=== PATIENT | female | born 1975 | race Caucasian/White ===

== ENCOUNTER 2019-11-25 10:59 | Outpatient (CLI) | payer OTHER, SELFPAY ==
[2019-11-25 12:06] LABS: Alanine Aminotransferase 14 U/L (4-35); Albumin Level 4.5 g/dL (3.5-5.1); Alkaline Phosphatase 70 U/L (38-126); Anion Gap 7 mmol/L (8-16); Aspartate Amino Transferase 22 U/L (14-36); Bilirubin,Total 0.6 mg/dL (0.2-1.3); Blood Urea Nitrogen 13 mg/dL (7-17); Calcium 9.7 mg/dL (8.4-10.2); Carbon Dioxide 25 mmol/L (22-30); Chloride 106 mmol/L (98-107); Estimated Glomerular Filt Rate > 60; Glucose 103 mg/dL (65-105); Potassium 3.9 mmol/L (3.4-5.0); Sodium 138 mmol/L (137-145)
[2019-11-25 12:10] LABS: Hemoglobin A1C 5.6 % (<5.7)
[2019-11-25 12:56] LABS: Free T4 Free Thyroxine 1.11 ng/mL (0.78-2.19)
== END 2019-11-25 11:00 | disposition home or self-care (01) ==
PROVIDERS: Visit Provider Nurse Practitioner
DX: I10 Essential (primary) hypertension (principal); E03.9 Hypothyroidism, unspecified
CPT/HCPCS: 36415; 80053; 83036; 84439; 84443

== ENCOUNTER 2020-11-22 13:37 | Emergency (ER) | payer OTHER, SELFPAY ==
--- NOTE | ~2020-11-22 | XR_ITS ---
EXAMINATION: XR knee LT min 4V DATE: 11/22/2020 14:39 INDICATION: Left knee injury and pain. TECHNIQUE: 4 views of left knee were obtained. COMPARISON: None. FINDINGS: Bone alignment is normal. No fracture. There are changes of anterior cruciate ligament cielo nstruction. There is moderate osteoarthritis of medial and lateral compartments and mild osteoarthrit is of patellofemoral compartment. No knee joint effusion. IMPRESSION: 1. Moderate left knee osteoarthritis. Reviewed, dictated and finalized at location A.
[2020-11-22 14:06] VITALS: BP 151/86; PULSE 120; RESP 16; TEMP 36.1; O2SAT 99
--- NOTE | 2020-11-22 14:12 | ED.LOWEXIN ---
HPI - Extremity Injury (Lower) General Chief Complaint: Extremity Injury, Lower Stated Complaint: L Knee Pain Time Seen by Provider: 11/22/20 14:11 Source: patient Mode of arrival: wheelchair Limitations: no limitations History of Present Illness HPI Narrative: Patient is a 45-year-old female who presents for evaluation of injury to left knee. Patient was walking when she had a misstep and heard 3 pops in her left knee with immediate pain in the knee. Patient reports some pain and swelling at the site. Pain is exacerbated with movement and bearing weight. She has been able to ambulate. No focal numbness or weakness. Patient has history of various knee surgeries in this knee. She did not fall to the ground. No pain in the right knee. No hip pain. Related Data Home Medications Medication Instructions Recorded Confirmed atorvastatin HS 11/22/20 buspirone mg BID 11/22/20 clonidine HCl HS 11/22/20 levothyroxine DAILY 11/22/20 lisinopril DAILY 11/22/20 lorazepam HS PRN 11/22/20 metformin mg BID 11/22/20 venlafaxine mg 11/22/20 venlafaxine mg 11/22/20 Allergies Allergy/AdvReac Type Severity Reaction Status Date / Time lanolin Allergy Mild RASH Verified 11/22/20 14:18 meperidine Allergy Mild RASH/VOMITI Verified 11/22/20 14:18 NG propoxyphene Allergy Mild RASH/VOMITI Verified 11/22/20 14:18 NG cortisone Allergy Unknown SWELLING Verified 11/22/20 14:18 Review of Systems Review of Systems: CONSTITUTIONAL: Denies fever CARDIOVASCULAR: Denies chest pain RESPIRATORY: Denies cough or dyspnea. GASTROINTESTINAL: Denies abdominal pain SKIN: Denies rash MUSCULOSKELETAL: Denies back pain, reports left knee pain NEUROLOGIC: Denies headache [facility] Family History Family History (Updated 10/13/15 @ 23:19 by DOCTOR UNKNOWN) Grandparent Family history of malignant neoplasm of breast Family history of coronary artery disease Diabetes mellitus Other Family history of kidney disease Family history of malignant neoplasm Social History Social History Smoking status: Never smoker Second hand tobacco smoke exposure: No Alcohol intake: current Exam Narrative: GENERAL: Awake, alert, conversant HEAD: Normocephalic, atraumatic. EYES: PERRLA and EOMI. ENT: Nares clear, no rhinorrhea or epistaxis. Mucous membranes moist. NECK: Supple. CHEST: No respiratory distress, breathing even and non labored HEART: Regular rate, sinus rhythm ABDOMEN:Non distended, non tender EXTREMITIES: The left knee has an intact surgical scar that is well-healed. There is mild effusion. No erythema or warmth. Patella is midline. There is mild tenderness at the medial and lateral joint space. No deformity. Intact sensation. DP pulse 2+. Capillary refill less than 3 seconds. SKIN: Warm, dry, no rash. NEURO:No focal deficits. Alert and oriented x3 Course Vital Signs Vital signs: Vital Signs Temperature 36.1 C L 11/22/20 14:06 Pulse Rate 120 H 11/22/20 14:06 Respiratory Rate 16 11/22/20 14:06 Blood Pressure 151/86 H 11/22/20 14:06 Pulse Oximetry 99 11/22/20 14:06 Temperature 36.1 C L 11/22/20 14:06 Pulse Rate 120 H 11/22/20 14:06 Respiratory Rate 16 11/22/20 14:06 Blood Pressure 151/86 H 11/22/20 14:06 Pulse Oximetry 99 11/22/20 14:06 MDM - Extremity Injury (Lower) MDM Narrative Medical decision making narrative: Pt presents for left knee pain after a misstep. Pt ambulatory in room. She is neurovascularly intact. She has some medial and lateral joint tenderness which is consistent with soft tissue injury. Radiographic imaging is reassuring. Patient was given oral pain medication in the ER. LOTUS wrap applied per patient request. She was mildly tachycardic at time of being roomed however pulse rate is 90s at time of my assessment. No signs of infectious type symptoms. She was given a referral to orthopedic surgery. Patient then dis
[2020-11-22] MEDS: oxyCODONE/ACETAMINOPHEN (*CRX) 5-325 MG TABLET 1 TABLET PO (15:35)
== END 2020-11-22 15:41 | disposition home or self-care (01) ==
PROVIDERS: Emergency Provider Emergency Medicine
DX: S86.912A Strain of unspecified muscle(s) and tendon(s) at lower leg level, left leg, initial encounter (principal); X50.9XXA Other and unspecified overexertion or strenuous movements or postures, initial encounter
CPT/HCPCS: 73564; 99283; A9270

== ENCOUNTER 2020-12-25 13:24 | Emergency (ER) | payer OTHER, SELFPAY ==
[2020-12-25] VITALS (27 sets, daily range): BP systolic 71–150; BP diastolic 40–121; PULSE 98–116; RESP 16–26; O2SAT 94–100
--- NOTE | ~2020-12-25 | CT_ITS ---
. EXAMINATION: CT knee LT wo con DATE: 12/25/2020 16:43 INDICATION: Left knee fracture TECHNIQUE: High resolution computed tomography (CT) of the left knee was performed without intravenou s contrast. Sagittal and coronal reconstructions were performed. Rotating surface rendered 3-D images of the left knee were also created by the technologist for potential surgical planning. Automated ex posure control and iterative reconstruction technique were employed. The dose-length product was 444. 02 mGy-cm. COMPARISON: Radiographs dated 12/25/2020 FINDINGS: Postoperative change of prior anterior cruciate ligament reconstruction with interference screw at th e roof of the intercondylar notch and separate femoral and tibial tunnels in expected positions. Sagi ttally oriented intra-articular fracture of the proximal tibia which extends anteroposteriorly along the medial side of the lateral tibial plateau along the shoulder the intercondylar eminence which ext ends approximately 5.5 cm inferolaterally to the lateral cortex of the proximal metaphysis. There is negligible displacement with no significant fracture gap or incongruity along the articular cortex. N o other fractures identified. Tricompartmental osteoarthritis at the left knee with moderate to large marginal osteophytes in all 3 compartments. There is some cortical irregularity along both the media l and lateral weightbearing femoral condyles and at the cephalad aspect of the lateral trochlea sugge sting overlying regions of high-grade chondromalacia. Moderate-sized layering lipohemarthrosis at the suprapatellar pouch. Large loose osteochondral body in the lateral gutter of the suprapatellar pouch . The left knee joint effusion extends into the popliteus bursa. Sagittally oriented region of thinni ng at the central aspect of the patellar tendon with defects at the inferior patella and anterior tib ial tuberosity consistent with prior patellar tendon autograft likely for the anterior cruciate ligam ent repair integrity of which is not diagnostically evaluated on CT images. IMPRESSION: 1. Minimally displaced intra-articular fracture of the lateral tibial plateau. 2. At least mild to moderate tricompartmental osteoarthritis at the left knee with regions of high-gr reji chondral malacia in all 3 compartments. Severity of joint space during can however be underestima noemi on nonweightbearing imaging. 3. Moderate-sized left knee lipohemarthrosis. 4. Postoperative change of prior anterior cruciate ligament reconstruction with patellar tendon autog raft. Correlate with surgical history. Reviewed, dictated and finalized at location A. IMPRESSION: 1. Minimally displaced intra-articular fracture of the lateral tibial plateau. 2. At least mild to moderate tricompartmental osteoarthritis at the left knee w ith regions of high-grade chondral malacia in all 3 compartments. Severity of j oint space during can however be underestimated on nonweightbearing imaging. 3. Moderate-sized left knee lipohemarthrosis. 4. Postoperative change of prior anterior cruciate ligament reconstruction with patellar tendon autograft. Correlate with surgical history.
--- NOTE | ~2020-12-25 | CT_ITS ---
EXAMINATION: CT brain wo con DATE: 12/25/2020 16:42 INDICATION: Syncopal episode today. Fall. TECHNIQUE: Computed tomography (CT) of the head was performed without intravenous contrast. The mA wa s adjusted according to patient size. Iterative reconstruction technique was employed. Exam dose: 60 5.33 mGy-cm total exam DLP. COMPARISON: None FINDINGS: No intracranial mass lesion or hemorrhage or cerebrovascular accident. No midline shift or mass effect. Normal ventricular size. Normal roblero-white matter differentiation. No subdural or epidural hematoma is detected. No fracture or bone destruction of the cranial vault. Included paranasal sinuses and mastoid air cells are normally developed and aerated. IMPRESSION: No significant abnormality Reviewed, dictated and finalized at Location A. Reviewed, dictated and finalized at location B. IMPRESSION: No significant abnormality
--- NOTE | ~2020-12-25 | XR_ITS ---
EXAMINATION: XR knee LT 3V EXAM DATE: 12/25/2020 14:18 INDICATION: Fall, severe left knee pain. Initial encounter. TECHNIQUE: Three projections of the left knee. There is no prior study for comparison. FINDINGS: There is acute closed posttraumatic fracture of the left tibial lateral plateau with a vert ical line extending into the knee joint near the tibial spines. There is about a 2-3 mm gap between f racture fragments at the joint space. No appreciable depression. There is also an acute closed posttraumatic fracture through the left fibular head/neck proximally wh ich is essentially nondisplaced. There is small joint effusion. There is ACL ligament repair anchor. Patella, femur. Intact. There is moderate tibiofemoral primary osteoarthritis. IMPRESSION: 1. Acute left lateral tibial plateau fracture. 2. Acute proximal fibular head/neck fracture. 3. Orthopedic consult. Reviewed, dictated and finalized at location A.
--- NOTE | ~2020-12-25 | CT_ITS ---
EXAMINATION: CT ankle LT wo con DATE: 12/25/2020 16:43 INDICATION: Left ankle fracture. TECHNIQUE: Computed tomography (CT) of the left ankle was performed without intravenous contrast. Aut omated exposure control and iterative reconstruction technique were employed. The dose-length product was 314.12 mGy-cm. COMPARISON: Left ankle radiographs 12/25/2020 FINDINGS: There is an oblique fracture involving the medial and posterior malleoli. The distal fractu re fragment demonstrates 4 mm distraction anteriorly. There is a comminuted fracture of tip of latera l malleolus with medial aspect of the fracture line to 2.0 cm distal to the level of the tibial plafo nd. The main distal fracture fragment demonstrates near-anatomic alignment. The talar dome is intact. There is an old ununited fracture of the anterior process of calcaneus. There are tiny osteophytes a t some of the midfoot and hindfoot joints. There are enthesophytes at the posterior and plantar aspec ts of calcaneal tuberosity. IMPRESSION: 1. Oblique fracture involving the medial and posterior malleoli of distal tibia. 2. Comment fracture of lateral malleolus. Reviewed, dictated and finalized at location A. IMPRESSION: 1. Oblique fracture involving the medial and posterior malleoli of distal tibia . 2. Comment fracture of lateral malleolus.
--- NOTE | ~2020-12-25 | XR_ITS ---
EXAMINATION: XR chest 1V DATE: 12/25/2020 15:41 INDICATION: Syncope TECHNIQUE: frontal view of the chest was obtained. COMPARISON: None FINDINGS: Small lung volumes. No focal airspace opacities, pulmonary edema, pleural effusion or pneumothorax. T he cardiomediastinal silhouette is normal. IMPRESSION: 1. No acute cardiopulmonary disease. Reviewed, dictated and finalized at location A.
--- NOTE | ~2020-12-25 | XR_ITS ---
EXAMINATION: XR ankle LT min 3V EXAM DATE: 12/25/2020 14:18 INDICATION: Initial encounter following injury, with pain of the left ankle. TECHNIQUE: Left ankle frontal, lateral and oblique projections obtained and reviewed. Comparison is m reji to prior examination from 01/17/2016. FINDINGS: There is acute closed posttraumatic fracture of the left tibial plafond and along its media l aspect, junction with the medial malleolus. This is essentially nondisplaced but may need surgical fixation. There is overlying soft tissue swelling. Orthopedic consult recommended. The mortise rela tionship appears maintained. IMPRESSION: Acute left tibial plafond fracture at the medial malleolar junction. Reviewed, dictated and finalized at location A. IMPRESSION: Acute left tibial plafond fracture at the medial malleolar junctio n.
--- NOTE | 2020-12-25 13:44 | ECG_ITS ---
Measurements Intervals Dawson Rate: 114 P: 5 MT: 141 QRS: -4 QRSD: 101 T: 18 QT: 343 QTc: 474 Interpretive Statements SINUS TACHYCARDIA DELAYED PRECORDIAL R/S TRANSITION BORDERLINE T WAVE ABNORMALITY- INFERIOR LEADS BASELINE ARTIFACT- I, II, III, AVR, AVL, AVF, V1, V3-V5 ABNORMAL ECG Electronically Signed On 12-25-2020 14:43:28 CDT by Rodriguez Matamoros D.O.
[2020-12-25] MEDS: SODIUM CHLORIDE 0.9% IV 1,000 ML 999 ML (14:04)
[2020-12-25 14:05] LABS: Basophils Absolute Auto 0.1 K/mm3 (0.0-0.1); Basophils Percent Auto 0.5 % (0.2-1.2); Eosinophils Absolute Auto 0.2 K/mm3 (0-0.3); Eosinophils Percent Auto 1.6 % (0-4.4); Hematocrit 42.4 % (37.0-47.0); Hemoglobin 13.8 g/dL (12.0-15.0); Immature Granulocyte Absolute 0.04 K/mm3 (0.00-0.031); Immature Granulocyte Percent A 0.4 % (0-0.5); Lymphocytes Percent Auto 28.3 % (18.3-44.2); Mean Corpuscular HGB Conc 32.5 g/dl (32-36); Mean Corpuscular Volume 101.4 fl (80-100); Mean Platelet Volume 11.2 fl (7.4-10.4); Monocytes Absolute Auto 0.6 K/mm3 (0.1-0.6); Monocytes Percent Auto 5.6 % (2.6-8.5); Neutrophils Absolute Auto 6.3 K/mm3 (1.3-6.7); Neutrophils Percent Auto 63.6 % (45.5-73.1); Platelet Count Result 263 k/mm3 (150-375); Red Blood Count 4.18 M/mm3 (4.2-5.4); Red Cell Distribution Width 11.8 % (11.5-14.5); White Blood Count 9.9 K/mm3 (4.5-10.0)
--- NOTE | 2020-12-25 14:13 | ED.GENADULT ---
HPI - General Adult General Chief complaint: Syncope Stated complaint: fall Time Seen by Provider: 12/25/20 13:55 History of Present Illness HPI narrative: Patient is a 66 y/o female complaining of feeling dizzy and passing out about 20-30 minutes. She states that she was walking down a hallway and felt her knees were buckling and she went down. However, she was caught before she hit the ground. However, she states that her leg went different ways and now she has severe left knee pain. She describes her pain as sharp and rates it as 10/10. Movement worsens her pain. Related Data Home Medications Medication Instructions Recorded Confirmed atorvastatin HS 11/22/20 buspirone mg BID 11/22/20 clonidine HCl HS 11/22/20 levothyroxine DAILY 11/22/20 lisinopril DAILY 11/22/20 lorazepam HS PRN 11/22/20 metformin mg BID 11/22/20 venlafaxine mg 11/22/20 venlafaxine mg 11/22/20 Allergies Allergy/AdvReac Type Severity Reaction Status Date / Time lanolin Allergy Mild RASH Verified 11/22/20 14:18 meperidine Allergy Mild RASH/VOMITI Verified 11/22/20 14:18 NG propoxyphene Allergy Mild RASH/VOMITI Verified 11/22/20 14:18 NG cortisone Allergy Unknown SWELLING Verified 11/22/20 14:18 Review of Systems Constitutional: Constitutional: Denies chills, Denies fever(s), Denies headache(s) and Reports weakness Eyes: Eyes: Denies blurry vision ENT: Denies headache(s) and Denies neck pain Cardiovascular: Cardiovascular: Denies chest pain and Denies dyspnea Respiratory: Respiratory: Denies cough and Denies dyspnea Gastrointestinal: Gastrointestinal: Denies abdominal pain, Denies diarrhea, Denies nausea and Denies vomiting Genitourinary: Genitourinary: Denies hematuria and Denies dysuria Musculoskeletal: Musculoskeletal: Reports as per HPI, Denies back pain, Reports arthralgias (left knee pain) and Denies neck pain Neurologic: Reports syncope, Denies headache(s) and Reports weakness [facility] Family History Family History (Updated 10/13/15 @ 23:19 by DOCTOR UNKNOWN) Grandparent Family history of malignant neoplasm of breast Family history of coronary artery disease Diabetes mellitus Other Family history of kidney disease Family history of malignant neoplasm Social History Social History Smoking status: Never smoker Second hand tobacco smoke exposure: No Alcohol intake: current Exam Const: General: no acute distress and well developed Orientation/consciousness: oriented to person, oriented to place, oriented to time and patient oriented x3 HENMT: Head: normocephalic Ears: external ears normal General nose exam: Normal external nose present Eyes: General: appearance normal, both eyes and all related structures Conjunctivae: conjunctivae normal Neck: Neck: normal visual inspection and full ROM Chest: Chest palpation & inspection: normal inspection of the chest and no tenderness Resp: Effort & Inspection: normal respiratory effort Auscultation: clear to auscultation bilaterally Cardio: Rate: regular rate Rhythm: regular rhythm GI: GI Palp: No abdominal tenderness and Yes Soft to palpation Skin: General skin exam: normal color and turgor normal Neuro: General: oriented to person, oriented to place, oriented to time and patient oriented x3 Cognition (Neuro): normal cognition Extrem: General: normal to inspection, full ROM and no pedal edema Left lower extremity: knee Details: tenderness Psych: Appearance: grossly normal Mental Status: mental status grossly normal Affect: normal affect Course Consultations Consultation #1: Discussed with Dr. Cevallos, who recommends CT of knee and ankle. He will review images after it's done. Date: 12/25/20 Time: 15:34 Consultation #2: Dr. Cevallos called. He state that he reviewed xray and recommends transfer due to nature of injuries.. Date: 12/25/20 Time: 16:45 Consultation #3: Discussed w
[2020-12-25 14:14] LABS: Anion Gap 21 mmol/L (8-16); Blood Urea Nitrogen 12 mg/dL (7-17); Calcium 9.6 mg/dL (8.4-10.2); Carbon Dioxide 16 mmol/L (22-30); Chloride 102 mmol/L (98-107); Estimated CRCL calculation 46 ml/min; Estimated Glomerular Filt Rate 33; Glucose 136 mg/dL (65-110); Potassium 3.3 mmol/L (3.4-5.0); Sodium 139 mmol/L (137-145)
[2020-12-25] MEDS: SODIUM CHLORIDE 0.9% IV 1,000 ML 999 ML IV CONT ×2 (14:35→17:24)
[2020-12-25] MEDS: HYDROcodone/acetaminophen (*CRX) 5-325 MG TABLET 1 TAB PO (14:35)
[2020-12-25 15:31] LABS: Lactic Acid Reflex 4.5 mmol/L (0.7-2.1)
[2020-12-25 16:54] LABS: Appearance Urine Cloudy (Clear); Color Urine Yellow (Yellow); Specific Grav Ur 1.006 (1.001-1.035)
[2020-12-25 16:55] LABS: Add Urine Microscopic? YES; Bacteria Urine Trace /hpf; Bilirubin Urine Negative (Negative); Blood Urine 3+ (Negative); Glucose Urine UA Negative (Negative); Ketones Urine Negative (Negative); Leukocyte Esterase Ur Negative LEU/UL (Negative); Mucus Urine Rare /lpf; Nitrate Urine Negative (Negative); Protein Urine 1+ mg/dL (Negative); Squamous Epithelial Cell Urine Many /hpf (Few); Urobilinogen Urine Negative mg/dL (<2.0)
--- NOTE | 2020-12-25 17:20 | PC.NURSE ---
Addendum entered by Hallie Wolfe 12/25/20 20:30: 2031: called [facility] for update...ETA 2114 Addendum entered by Hallie Wolfe 12/25/20 19:02: 1805: called [facility] for update...ETA 1929 1853: called [facility] for update...ETA 1999 Original Note: [facility] accepted transfer to [facility] ETA 1900 Trip #[id number]
[2020-12-25] MEDS: MORPHINE SULFATE (*CRX) 4 MG/ML INJ IV PUSH (17:24)
--- NOTE | 2020-12-25 17:31 | PC.NURSE ---
report called to natasha rodriguez
[2020-12-25 18:12] LABS: Reflex Lactic Acid Yes or No Add Lactic
== END 2020-12-25 21:48 | disposition short-term general hospital (02) ==
PROVIDERS: Emergency Provider Emergency Medicine; PCP Physician Assistant
DX: E87.2 Acidosis (principal); S82.142A Displaced bicondylar fracture of left tibia, initial encounter for closed fracture; R55 Syncope and collapse; W18.39XA Other fall on same level, initial encounter
CPT/HCPCS: 36415; 70450; 71045; 73562; 73610; 73700; 80048; 81001; 81025; 83605; 85025; 93005; 96361; 96374; 99285; A9270; J2270; J7030

== ENCOUNTER 2022-02-12 12:14 | Outpatient (CLI) | payer OTHER, SELFPAY ==
[2022-02-12 12:53] LABS: Basophils Percent Auto 0.3 % (0.2-1.2); Eosinophils Absolute Auto 0.2 K/mm3 (0-0.3); Hematocrit 38.6 % (37.0-47.0); Immature Granulocyte Absolute 0.04 K/mm3 (0.00-0.031); Immature Granulocyte Percent A 0.5 % (0-0.5); Lymphocytes Absolute Auto 2.01 K/mm3 (0.9-3.2); Lymphocytes Percent Auto 26.4 % (18.3-44.2); Mean Corpuscular HGB Conc 33.7 g/dl (32-36); Mean Corpuscular Hemoglobin 33.2 pg (26-34); Mean Corpuscular Volume 98.7 fl (80-100); Mean Platelet Volume 10.6 fl (7.4-10.4); Monocytes Absolute Auto 0.4 K/mm3 (0.1-0.6); Monocytes Percent Auto 5.3 % (2.6-8.5); Neutrophils Absolute Auto 4.9 K/mm3 (1.3-6.7); Neutrophils Percent Auto 64.5 % (45.5-73.1); Platelet Count Result 247 k/mm3 (150-375); Red Blood Count 3.91 M/mm3 (4.2-5.4); Red Cell Distribution Width 11.9 % (11.5-14.5); White Blood Count 7.6 K/mm3 (4.5-10.0)
[2022-02-12 13:02] LABS: Hemoglobin A1C 6.7 % (<5.7)
[2022-02-12 13:03] LABS: Alanine Aminotransferase 25 U/L (6-35); Albumin Level 4.5 g/dL (3.5-5.1); Alkaline Phosphatase 75 U/L (38-126); Anion Gap 10 mmol/L (8-16); Aspartate Amino Transferase 29 U/L (14-36); Bilirubin,Total 0.3 mg/dL (0.2-1.3); Blood Urea Nitrogen 13 mg/dL (7-17); Calcium 9.6 mg/dL (8.4-10.2); Carbon Dioxide 30 mmol/L (22-30); Chloride 101 mmol/L (98-107); Cholesterol 303 mg/dL (0-200); Estimated Glomerular Filt Rate 48; Glucose 123 mg/dL (65-110); HDL Direct 52 mg/dL; Potassium 3.1 mmol/L (3.4-5.0); Sodium 141 mmol/L (137-145); Triglycerides 219 mg/dL (<150)
[2022-02-12 13:44] LABS: Vitamin D 25 Hydroxy 25.1 ng/mL
[2022-02-12 14:33] LABS: LDL Cholesterol Direct 181 mg/dL
== END 2022-02-12 12:15 | disposition home or self-care (01) ==
LOC: ANHLAB 12:18
PROVIDERS: PCP Physician Assistant
DX: F32.9 Major depressive disorder, single episode, unspecified (principal)
CPT/HCPCS: 36415; 80053; 80061; 82306; 83036; 84439; 84443; 85025

== ENCOUNTER 2023-07-17 12:05 | Emergency (ER) | payer OTHER, SELFPAY ==
[2023-07-17 12:13] VITALS: BP 147/96; PULSE 102; RESP 18; TEMP 36.3; O2SAT 98
--- NOTE | 2023-07-17 12:22 | ED.DENTAL ---
HPI - Dental/Oral General Chief complaint: Dental/Oral Stated complaint: Tooth Infection Source: patient Mode of arrival: ambulatory History of Present Illness HPI Narrative: 48-year-old female presented for complaint of left lower dental pain intermittently for over 1 month. Endorses swelling of the gum around a broken tooth. She has scheduled appointment with a dentist in August. Using Orajel and clove oil and ibuprofen. MD Complaint: tooth pain Related Data Home Medications Medication Instructions Recorded Confirmed buspirone 30 mg tablet mg BID 11/22/20 clonidine HCl 0.3 mg tablet HS 11/22/20 levothyroxine 75 mcg tablet DAILY 11/22/20 lisinopril 20 mg tablet DAILY 11/22/20 lorazepam 1 mg tablet HS PRN Anxiety 11/22/20 venlafaxine 100 mg tablet mg 11/22/20 venlafaxine 50 mg tablet mg 11/22/20 Allergies Allergy/AdvReac Type Severity Reaction Status Date / Time lanolin Allergy Mild RASH Verified 07/17/23 12:22 meperidine Allergy Mild RASH/VOMITI Verified 07/17/23 12:22 NG propoxyphene Allergy Mild RASH/VOMITI Verified 07/17/23 12:22 NG cortisone Allergy Unknown SWELLING Verified 07/17/23 12:22 Review of Systems Review of Systems: CONSTITUTIONAL: Denies body aches, fever, chills ENT: Denies rhinorrhea, congestion, sore throat, or otalgia. Reports dental pain CARDIOVASCULAR: Denies chest pain, palpitations RESPIRATORY: Denies cough or dyspnea. SKIN: Denies rash, itching, or wounds. MUSCULOSKELETAL: Denies myalgia. NEUROLOGIC: Denies headache, numbness, tingling, or weakness. [facility] Family History Family History Grandparent Family history of malignant neoplasm of breast Family history of coronary artery disease Diabetes mellitus Other Family history of kidney disease Family history of malignant neoplasm Social History Social History Smoking status: Never smoker Second hand tobacco smoke exposure: No Alcohol intake: current Comments At time of signature, I have reviewed and agree with nursing past medical, surgical, social and family history unless otherwise noted. Please see nursing chart for further information. There is no relevant family history pertinent to the presenting complaint Exam Narrative: GENERAL: Appears in pain; no acute distress. HEAD: Normocephalic, atraumatic. EYES: EOMI. No redness or drainage. Conjunctivae normal. ENT: Dental pain location of #19, broken tooth, swelling and erythema to gum no apparent drainage. Mucous membranes pink and moist. No uvular deviation or soft palate edema. TMs normal bilaterally. Throat normal. Uvula midline. No dysphagia, odynophagia, dysphonia, or dyspnea. NECK: Normal AROM. No lymphadenopathy. No induration or erythema below mandible. CHEST: No respiratory distress. Clear to auscultation. HEART: Regular rate and rhythm. No murmur appreciated. SKIN: Warm, dry, no rash. Normal skin turgor. NEURO: No focal deficits. Alert and oriented x3. Gait steady. Course Course Emergency Course: Patient is aware of diagnosis, understands and agrees to treatment plan. Anticipatory guidance given. Patient agrees to follow-up as directed and is aware of reasons to seek care at the emergency department. Portions of this record may have been created with voice recognition software Level of Care: Express Care Visit Vital Signs Vital signs: Vital Signs Temperature 97.4 F L 07/17/23 12:13 Pulse Rate 102 H 07/17/23 12:13 Respiratory Rate 18 07/17/23 12:13 Blood Pressure 147/96 H 07/17/23 12:13 Pulse Oximetry 98 07/17/23 12:13 Oxygen Delivery Room Air 07/17/23 12:13 Temperature 97.4 F L 07/17/23 12:13 Pulse Rate 102 H 07/17/23 12:13 Respiratory Rate 18 07/17/23 12:13 Blood Pressure 147/96 H 07/17/23 12:13 Pulse Oximetry 98 07/17/23 12:13 Oxygen Delivery Room Air
== END 2023-07-17 12:33 | disposition home or self-care (01) ==
PROVIDERS: Emergency Provider Nurse Practitioner Family; PCP Physician Assistant
DX: K04.7 Periapical abscess without sinus (principal)
CPT/HCPCS: 99213; G0463